=== PATIENT | female | born 1955 ===

== ENCOUNTER 2018-05-12 08:43 | Inpatient (IN) | payer OTHER ==
[~2018-05-12] VITALS: Ht 162.6 cm; Wt 72.3 kg
--- NOTE | 2018-05-12 09:16 | EKG ---
[address] [address] Test Date: 2018-05-12 Test Time: 09:12:29 Pat Name: MARTÍN BECERRA Department: Room: Gender: F [employer]: : 1955 Requested By: MERLY VACA Order Number: [id number] Reading MD: Mario Wei Measurements Intervals [place] Rate: 50 P: 69 NM: 152 QRS: 1 QRSD: 80 T: 49 QT: 424 QTc: 389 Interpretive Statements SINUS RHYTHM INCOMPLETE RIGHT BUNDLE BRANCH BLOCK Electronically Signed On 05-15-2018 10:19:23 CDT by Mario Wei
[2018-05-12 09:29] LABS: BACTERIA,URINE MOD /HPF (0-FEW); BILIRUBIN,URINE NEG (NEG); CLARITY,URINE CLOUDY; COLOR,URINE AMBER; GLUCOSE,URINE NEG (NEG); NITRITE,URINE NEG (NEG); SQUAMOUS EPITHELIAL CELL,UR MANY /LPF; UROBILINOGEN,URINE 0.2 mg/dL (0.2 mg/dL); WBC,URINE >40 /HPF (0-4)
[2018-05-12 09:38] LABS: ALBUMIN 3.9 g/dL (3.4-5.0); CALCIUM 9.5 mg/dL (8.5-10.1); CREATININE 0.7 mg/dL (0.6-1.0); GFR 84.5; MAGNESIUM 1.9 mg/dL (1.8-2.4); POTASSIUM 4.5 mmol/L (3.5-5.1); TOTAL BILIRUBIN 0.3 mg/dL (0.2-1.0); TOTAL PROTEIN 7.8 g/dL (6.4-8.2)
[2018-05-12 09:40] LABS: BASO % 0 % (0-3); EOS # 0.1 x10^3/uL (0.0-0.7); EOS % 1 % (0-3); HEMATOCRIT 39.5 % (36.0-47.0); HEMOGLOBIN 13.6 g/dL (12.0-15.5); LYMPH # 1.2 x10^3/uL (1.0-4.8); LYMPH % 22 % (24-48); MEAN CORPUSCULAR HEMOGLOBIN 30 pg (25-35); MEAN CORPUSCULAR HGB CONC 35 g/dL (31-37); MEAN CORPUSCULAR VOLUME 85 fL (79-100); MONO # 0.4 x10^3/uL (0.0-1.1); MONO % 7 % (0-9); NEUT # 3.6 x10^3uL (1.8-7.7); NEUT % 69 % (31-73); PLATELET COUNT 317 x10^3/uL (140-400); RED BLOOD COUNT 4.63 x10^6/uL (3.50-5.40); RED CELL DISTRIBUTION WIDTH 13.8 % (11.5-14.5); WHITE BLOOD COUNT 5.3 x10^3/uL (4.0-11.0)
--- NOTE | 2018-05-12 09:48 | PHYS DOC ---
Past History Past Medical History: Alcoholism, Arthritis, Diabetes, Hypertension, Other Past Surgical History: Other Alcohol Use: Occasionally Drug Use: None Adult General Chief Complaint Chief Complaint: PSYCH EVALUATION [facility] Patient is a 63 year old female who brought in by senior care staff for medical clearance for psych admission. skilled nursing reported that patient had hallucination and talking to third person and had aggressive behavior. Patient is alert and oriented x3 and denies any problem and states she doesn't know why she is here. Patient denies suicidal and homicidal ideation and hallucination. Review of Systems Review of Systems Constitutional: Denies fever or chills [] Eyes: Denies change in visual acuity, redness, or eye pain [] HENT: Denies nasal congestion or sore throat [] Respiratory: Denies cough or shortness of breath [] Cardiovascular: No additional information not addressed in HPI [] GI: Denies abdominal pain, nausea, vomiting, bloody stools or diarrhea [] : Denies dysuria or hematuria [] Musculoskeletal: Denies back pain or joint pain [] Integument: Denies rash or skin lesions [] Neurologic: Denies headache, focal weakness or sensory changes [] Endocrine: Denies polyuria or polydipsia [] All other systems were reviewed and found to be within normal limits, except as documented in this note. Allergies Allergies Allergies Coded Allergies Type Severity Reaction Last Updated Verified bimatoprost Allergy Intermediate 05/12/18 Yes clotrimazole Allergy Intermediate 05/12/18 Yes pioglitazone Allergy Intermediate 05/12/18 Yes glyburide Adverse Reaction Intermediate 05/12/18 Yes Physical Exam Physical Exam Constitutional: Well developed, well nourished, no acute distress, non-toxic appearance. [] HENT: Normocephalic, atraumatic Eyes: PERRLA, EOMI, conjunctiva normal, no discharge. [] Neck: Normal range of motion, no tenderness, supple, no stridor. [] Cardiovascular:Heart rate regular rhythm, no murmur [] Lungs & Thorax: Bilateral breath sounds clear to auscultation [] Abdomen: Bowel sounds normal, soft, no tenderness, no masses, no pulsatile masses. [] Skin: Warm, dry, no erythema, no rash. [] Back: No tenderness, no CVA tenderness. [] Extremities: No tenderness, no cyanosis, no clubbing, ROM intact, no edema. [] Neurologic: Alert and oriented X 3, normal motor function, normal sensory function, no focal deficits noted. [] Psychologic: Affect normal, judgement normal, mood normal. [] Current Patient Data Vital Signs Vital Signs Date Time Temp Pulse Resp B/P (MAP) Pulse Ox O2 Delivery O2 Flow Rate FiO2 05/12/18 09:11 98.3 59 18 96 Room Air Lab Results Laboratory Tests Test 05/12/18 09:03 05/12/18 09:04 White Blood Count 5.3 x10^3/uL (4.0-11.0) Red Blood Count 4.63 x10^6/uL (3.50-5.40) Hemoglobin 13.6 g/dL (12.0-15.5) Hematocrit 39.5 % (36.0-47.0) Mean Corpuscular Volume 85 fL (79-100) Mean Corpuscular Hemoglobin 30 pg (25-35) Mean Corpuscular Hemoglobin Concent 35 g/dL (31-37) Red Cell Distribution Width 13.8 % (11.5-14.5) Platelet Count 317 x10^3/uL (140-400) Neutrophils (%) (Auto) 69 % (31-73) Lymphocytes (%) (Auto) 22 % (24-48) L Monocytes (%) (Auto) 7 % (0-9) Eosinophils (%) (Auto) 1 % (0-3) Basophils (%) (Auto) 0 % (0-3) Neutrophils # (Auto) 3.6 x10^3uL (1.8-7.7) Lymphocytes # (Auto) 1.2 x10^3/uL (1.0-4.8) Monocytes # (Auto) 0.4 x10^3/uL (0.0-1.1) Eosinophils # (Auto) 0.1 x10^3/uL (0.0-0.7) Basophils # (Auto) 0.0 x10^3/uL (0.0-0.2) Sodium Level 136 mmol/L (136-145) Potassium Level 4.5 mmol/L (3.5-5.1) Chloride Level 99 mmol/L (98-107) Carbon Dioxide Level 29 mmol/L (21-32) Anion Gap 8 (6-14) Blood Urea Nitrogen 11 mg/dL (7-20) Creatinine 0.7 mg/dL (0.6-1.0) Estimated GFR (Cockcroft-Gault) 84.5 BUN/Creatinine Ratio 16 (6-20) Glucose Level 159 mg/dL (70-99) H Calcium Level 9.5 mg/dL (8.5-10.1) Magnesium Level 1.9 mg/dL (1.8-2.4) Total Bilirubin 0.3 mg/dL (0.2-1.0) Aspartate Amino Transferase (AST) 10 U/L (15-37) L Alanine Aminotransferase (ALT) 23 U/L (14-59) Alkaline Phosphatase 66 U/L (46-116) Total Protein 7.8 g/dL (6.4-8.2) Albumin 3.9 g/dL (3.4-5.0) Albumin/Globulin Ratio 1.0 (1.0-1.7) Urine Collection Type Unknown Urine Color Catherine Urine Clarity Cloudy Urine pH 6.5 Urine Specific [place] 1.020 Urine Protein 30 mg/dl (NEG-TRACE) Urine Glucose (UA) Neg mg/dL (NEG) Urine Ketones (Stick) Trace mg/dL (NEG) Urine Blood Trace (NEG) Urine Nitrite Neg (NEG) Urine Bilirubin Neg (NEG) Urine Urobilinogen Dipstick 0.2 mg/dL (0.2 mg/dL) Urine Leukocyte Esterase Mod (NEG) Urine RBC 1-2 /HPF (0-2) Urine WBC >40 /HPF (0-4) Urine Squamous Epithelial Cells Many /LPF Urine Transitional Epithelial Cells Few /LPF Urine Bacteria Mod /HPF (0-FEW) Urine Mucus Marked /LPF EKG EKG EKG interpreted by me. EKG at 0 912 showed sinus bradycardia at rate of 50, incomplete right bundle-branch block, no acute distress and T-wave abnormalities Radiology/Procedures Radiology/Procedures [] Course & Med Decision Making Course & Med Decision Making Pertinent Labs reviewed. (See chart for details) Evaluation of patient in ER showed 63-year-old female patient brought in for medical clearance for psych admission. Patient was alert and oriented and cooperative. Labs showed UTI and patient treated with Bactrim in ER. Patient was medically cleared for psych admission. Dragon Disclaimer Dragon Disclaimer This electronic medical record was generated, in whole or in part, using a voice recognition dictation system. Departure Departure: Impression: Primary Impression: Medical clearance for psychiatric admission Additional Impressions: Urinary tract infection Diabetes mellitus Behavioral problem Disposition: ADMITTED INPATIENT (to senior behavioral unit at 0945) Condition: STABLE Referrals: DEANA BURGOS MD (PCP) Problem Qualifiers MERLY VACA MD May 12, 2018 09:48
[2018-05-12] MEDS ORDERED: SMZ/TMP 800/160MG TABLET. PO ONE (10:10)
[2018-05-12 10:31] VITALS: BP 147/79
[2018-05-12] MEDS ORDERED: MAGNESIUM HYDROXIDE 2,400 MG/30 ML ORAL.SUSP. PO PRN (12:00)
[2018-05-12] MEDS ORDERED: METHYL SALICYLATE/MENTHOL TOPICAL OINTMENT 29GM TUBE. TP PRN (12:00)
[2018-05-12] MEDS ORDERED: MAG HYDROX/AL HYDROX/SIMETH 30 ML ORAL.SUSP PO PRN (12:00)
[2018-05-12] MEDS ORDERED: DICL100G18 TP (12:25)
[2018-05-12] MEDS ORDERED: INSU100V13 SQ (12:25)
[2018-05-12] MEDS ORDERED: ASCO500C9 PO (12:25)
[2018-05-12] MEDS ORDERED: IBUP400T18 PO (12:25)
[2018-05-12] MEDS ORDERED: METF10007 PO (12:25)
[2018-05-12] MEDS ORDERED: ZOLP5TAB PO (12:25)
[2018-05-12] MEDS ORDERED: LURA80TA PO (12:25)
[2018-05-12] MEDS ORDERED: TEMA15CA PO (12:25)
[2018-05-12] MEDS ORDERED: DICLOFENAC SODIUM 1% TOPICAL GEL 100GM TUBE. TP PRN (12:30)
[2018-05-12] MEDS ORDERED: IBUPROFEN 600 MG TABLET. PO PRN (12:45)
[2018-05-12] MEDS ORDERED: LATA2.5D3 EACHEYE (13:22)
[2018-05-12] MEDS ORDERED: DEXT15LI PO (13:36)
[2018-05-12] MEDS ORDERED: BENZ9GEL MM (13:36)
[2018-05-12] MEDS ORDERED: ZOLPIDEM 5 MG TABLET. PO PRN (13:45)
[2018-05-12] MEDS ORDERED: BENZOCAINE 20% ORAL GEL 11.9GM TUBE. TP PRN (13:45)
[2018-05-12] MEDS ORDERED: DEXTROSE ORAL GEL 15 GM TUBE. PO PRN (13:45)
[2018-05-12 16:01] VITALS: BP 125/71
[2018-05-12] MEDS ORDERED: metFORMIN 500 MG TABLET PO SCH (17:00)
[2018-05-12] MEDS: LURASIDONE 40 MG TABLET. PO SCH (17:01)
--- NOTE | 2018-05-12 19:50 | HP ---
ADMIT DATE: 05/12/2018 PSYCHIATRIC ADMISSION HISTORY/EVALUATION This note covers elements not covered in my initial note 05/12/2018. IDENTIFYING DATA: The patient is a 63-year-old female who is referred to us from [facility] in [place], [place] by Dr. Lynn, her primary care physician on account of having auditory and visual hallucinations. Reportedly, she has been aggressive, talks in the third person. She is noncompliant with medications and cares. She has been making catholic statements and grandiose statements that she has been "healed." She has been exit seeking, has failed outpatient psychiatric interventions and inpatient psychiatric hospitalization at [facility] from 05/03/2018 to 05/08/2018. The patient referred for inpatient psychiatric stabilization. CHIEF COMPLAINT: "No. I do not see and hear things. They just say I do. No, I never used to drink." The patient minimizes most of her problems including her past alcohol abuse, but in fact there is documentation about her significant past alcohol abuse. HISTORY OF PRESENT ILLNESS: The patient has a history of mood swings, depression, psychotic symptoms and she minimizes most of this. Cognitively, she has been reasonably intact. She has had some sleep disturbance, marked mood lability, and agitation is noted. No active suicidal or homicidal ideation. PAST PSYCHIATRIC HISTORY: As above. PAST MEDICAL HISTORY: The patient does have a UTI, received a dose of Bactrim in the ED. The patient does have a history of diabetes mellitus, glaucoma, hypertension, polyneuropathy, peripheral vascular disease, osteoarthritis. ACCU-CHEKS: A.c. and at bedtime. DIET: Regular. Takes medications whole. Ambulates with walker. CODE STATUS: FULL CODE. ALLERGIES: GLYBURIDE, ACTOS, LOTRIMIN, LUMIGAN. CURRENT PSYCHOTROPICS: Latuda 80 mg at bedtime, Ambien 5 mg at bedtime. FAMILY HISTORY: Noncontributory. SOCIAL HISTORY: Alcohol abuse history as noted above. No physical, sexual or elder abuse history is noted. She is not known to be a perpetrator. She stays still about age 10. [place]. She states she has 1 son who lives and works in [place], [place]. [place]. MENTAL STATUS EXAM: The patient was seen individually in her room, evening of 05/12/2018. She was aware of the date, but felt it was 05/07/2018. She is aware of who the President was, able to do one step on serial sevens, remembered 2/3 objects at 3 minutes. Speech is coherent, abstraction fair, computation impaired, language function intact. Mood and affect remain somewhat labile. No active suicidal or homicidal ideation. LABORATORY DATA: Reviewed. IMPRESSION: History of major depressive disorder with psychotic features; past history of alcohol abuse or dependence, possible bipolar 1 disorder, mixed with psychotic features; anxiety disorder, unspecified; impulse control disorder, unspecified; urinary tract infection. Rest as above. PLAN: Admit to Geropsychiatry Unit at [facility]. I see the patient daily individually from a psychiatric standpoint, medical followup with Dr. Lynn/Dr. Garnica. Continue the patient on her current psychotropics, observe baseline, then adjust as clinically indicated. Treat the UTI. ESTIMATED LENGTH OF STAY: 7-10 days. DISPOSITION: Plans back to [facility]. MAN Yolette UGARTE MD DR: SB/carmen JOB#: [id number] / [id number]
[2018-05-12] MEDS: ZOLPIDEM 5 MG TABLET. PO SCH (19:58)
[2018-05-12] MEDS: LATANOPROST 0.005% OPHTH SOLUTION 2.5ML BOTTLE. OU SCH (19:58)
[2018-05-12] MEDS ORDERED: INSULIN GLARGINE 300 UNITS/3 ML INSULN.PEN. SQ SCH (21:00)
--- NOTE | 2018-05-12 23:05 | PDOC ---
Exam Note: Alex Note: Please also refer to the separate dictated note~for this date of service dictated separately.~Patient seen individually. Discussed the patient with Nursing staff reviewed the chart.~Reviewed interim history and current functioning. Reviewed vital signs,~Labs/ Radiology~and current medications noted below. Continue current treatment with the changes noted in the dictated addendum note Assessment: Vital Signs: Vital Signs Date Time Temp Pulse Resp B/P (MAP) Pulse Ox O2 Delivery O2 Flow Rate FiO2 05/12/18 16:01 96.9 71 20 125/71 (89) 95 Room Air Labs: Laboratory Tests Test 05/12/18 09:03 05/12/18 09:04 White Blood Count 5.3 x10^3/uL (4.0-11.0) Red Blood Count 4.63 x10^6/uL (3.50-5.40) Hemoglobin 13.6 g/dL (12.0-15.5) Hematocrit 39.5 % (36.0-47.0) Mean Corpuscular Volume 85 fL (79-100) Mean Corpuscular Hemoglobin 30 pg (25-35) Mean Corpuscular Hemoglobin Concent 35 g/dL (31-37) Red Cell Distribution Width 13.8 % (11.5-14.5) Platelet Count 317 x10^3/uL (140-400) Neutrophils (%) (Auto) 69 % (31-73) Lymphocytes (%) (Auto) 22 % (24-48) L Monocytes (%) (Auto) 7 % (0-9) Eosinophils (%) (Auto) 1 % (0-3) Basophils (%) (Auto) 0 % (0-3) Neutrophils # (Auto) 3.6 x10^3uL (1.8-7.7) Lymphocytes # (Auto) 1.2 x10^3/uL (1.0-4.8) Monocytes # (Auto) 0.4 x10^3/uL (0.0-1.1) Eosinophils # (Auto) 0.1 x10^3/uL (0.0-0.7) Basophils # (Auto) 0.0 x10^3/uL (0.0-0.2) Sodium Level 136 mmol/L (136-145) Potassium Level 4.5 mmol/L (3.5-5.1) Chloride Level 99 mmol/L (98-107) Carbon Dioxide Level 29 mmol/L (21-32) Anion Gap 8 (6-14) Blood Urea Nitrogen 11 mg/dL (7-20) Creatinine 0.7 mg/dL (0.6-1.0) Estimated GFR (Cockcroft-Gault) 84.5 BUN/Creatinine Ratio 16 (6-20) Glucose Level 159 mg/dL (70-99) H Calcium Level 9.5 mg/dL (8.5-10.1) Magnesium Level 1.9 mg/dL (1.8-2.4) Total Bilirubin 0.3 mg/dL (0.2-1.0) Aspartate Amino Transferase (AST) 10 U/L (15-37) L Alanine Aminotransferase (ALT) 23 U/L (14-59) Alkaline Phosphatase 66 U/L (46-116) Total Protein 7.8 g/dL (6.4-8.2) Albumin 3.9 g/dL (3.4-5.0) Albumin/Globulin Ratio 1.0 (1.0-1.7) Urine Collection Type Unknown Urine Color Catherine Urine Clarity Cloudy Urine pH 6.5 Urine Specific [place] 1.020 Urine Protein 30 mg/dl (NEG-TRACE) Urine Glucose (UA) Neg mg/dL (NEG) Urine Ketones (Stick) Trace mg/dL (NEG) Urine Blood Trace (NEG) Urine Nitrite Neg (NEG) Urine Bilirubin Neg (NEG) Urine Urobilinogen Dipstick 0.2 mg/dL (0.2 mg/dL) Urine Leukocyte Esterase Mod (NEG) Urine RBC 1-2 /HPF (0-2) Urine WBC >40 /HPF (0-4) Urine Squamous Epithelial Cells Many /LPF Urine Transitional Epithelial Cells Few /LPF Urine Bacteria Mod /HPF (0-FEW) Urine Mucus Marked /LPF Current Medications: Meds: Current Medications Trimethoprim/ Sulfamethoxazole (Bactrim Ds) 1 tab 1X ONCE PO Last administered on 05/12/18at 09:56; Start 05/12/18 at 10:10; Stop 05/12/18 at 10 :11; Status DC Acetaminophen (Tylenol) 650 mg PRN Q6HRS PRN PO PAIN / TEMP; Start 05/12/18 at 12:00 Multi-Ingredient Ointment (Analgesic [place]) 1 mariela PRN QID PRN TP MUSCLE PAIN; Start 05/12/18 at 12:00 Al Hydroxide/Mg Hydroxide (Mylanta Plus Xs) 15 ml PRN AFTMEALHC PRN PO DYSPEPSIA; Start 05/12/18 at 12:00 Magnesium Hydroxide (Milk Of Magnesia) 2,400 mg PRN QHS PRN PO CONSTIPATION; Start 05/12/18 at 12:00 Diclofenac Sodium (Voltaren) 1 mariela PRN QID PRN TP PAIN; Start 05/12/18 at 12: 30; Stop 05/12/18 at 13:22; Status DC Ibuprofen (Motrin) 600 mg PRN Q6HRS PRN PO INFLAMMATION; Start 05/12/18 at 12: 45 Ascorbic Acid (Vitamin C) 500 mg DAILY PO ; Start 05/13/18 at 09:00 Insulin Glargine (Lantus) 20 units QHS SQ ; Start 05/12/18 at 21:00; Stop at 21:00; Status DC Metformin HCl (Glucophage) 1,000 mg BIDWMEALS PO ; Start 05/12/18 at 17:00; Stop 05/12/18 at 17:00; Status DC Metformin HCl (Glucophage) 1,000 mg DAILYWBKFT PO ; Start 05/13/18 at 08:00 Zolpidem Tartrate (Ambien) 5 mg PRN QHS PRN PO INSOMNIA; Start 05/12/18 at 13: 45; Stop 05/12/18 at 13:46; Status DC Benzocaine (Ora-Jel Maximum) 1 mariela PRN Q6HRS PRN TP ORAL PAIN; Start 05/12/18 at 13:45 Glucose (Insta-Glucose) 15 gm PRN Q15MIN PRN PO LOW BLOOD SUGAR; Start at 13:45 Latanoprost (Xalatan) 1 drop QHS OU Last administered on 05/12/18at 19:58; Start 05/12/18 at 21:00 Lurasidone HCl (Latuda) 80 mg DAILYWSUP PO Last administered on 05/12/18at 17: 01; Start 05/12/18 at 17:00 Insulin Glargine (Lantus) 20 units DAILY SQ ; Start 05/13/18 at 09:00 Zolpidem Tartrate (Ambien) 5 mg QHS PO Last administered on 05/12/18at 19:58; Start 05/12/18 at 21:00 Active Scripts Active Reported Glucose (Dextrose) 15 Gm/59 Ml Liquid 15 Gm PO PRN QID Anbesol (Benzocaine) 9 Gm Gel..gram. 9 Gm MM PRN Q6HRS PRN Latanoprost 2.5 Ml Drops 1 Drop EACHEYE QHS Ibuprofen 400 Mg Tablet 600 Mg PO PRN Q6HRS PRN Metformin Hcl 1,000 Mg Tablet 1,000 Mg PO DAILY Vitamin C (Ascorbic Acid) 500 Mg Capsule 500 Mg PO DAILY Levemir (Insulin Detemir) 100 Unit/1 Ml Vial 20 Unit SQ HS Latuda (Lurasidone Hcl) 80 Mg Tablet 80 Mg PO DAILYBFRSUP Ambien (Zolpidem Tartrate) 5 Mg Tablet 5 Mg PO PRN QHS PRN I have reviewed the current psychotropics carefully including drug interactions. Risk benefit ratio favors no change other than as noted in my dictated progress note. Diagnosis: Problems: (1) Urinary tract infection (2) Diabetes mellitus (3) Behavioral problem (4) Medical clearance for psychiatric admission (5) Anxiety disorder (6) Bipolar affective, mixed, sev w/ psych (7) Impulse control disorder AG UGARTE MD May 12, 2018 23:05
[2018-05-13 01:08] LABS: THYROXINE 8.9 ug/dL (4.5-12.0)
[2018-05-13 05:43] VITALS: BP 126/76
[2018-05-13] MEDS: metFORMIN 500 MG TABLET PO SCH (08:55)
[2018-05-13] MEDS: ASCORBIC ACID 500 MG TABLET PO SCH (08:55)
[2018-05-13 14:09] LABS: THYROID STIM HORMONE (TSH) 1.827 uIU/mL (0.358-3.740)
[2018-05-13 16:32] VITALS: BP 136/76
[2018-05-13] MEDS: LURASIDONE 40 MG TABLET. PO SCH (18:05)
[2018-05-13] MEDS: INSULIN GLARGINE 300 UNITS/3 ML INSULN.PEN. SQ SCH (19:04)
[2018-05-13] MEDS: SMZ/TMP 800/160MG TABLET. PO SCH (19:50)
[2018-05-13] MEDS: LACTOBACILLUS RHAMNOSUS GG 1 CAPSULE. PO SCH (19:50)
[2018-05-13] MEDS: LATANOPROST 0.005% OPHTH SOLUTION 2.5ML BOTTLE. OU SCH (19:51)
[2018-05-13] MEDS: ZOLPIDEM 5 MG TABLET. PO SCH (19:51)
--- NOTE | 2018-05-13 23:15 | PDOC ---
Exam Note: Alex Note: Please also refer to the separate dictated note~for this date of service dictated separately.~Patient seen individually. Discussed the patient with Nursing staff reviewed the chart.~Reviewed interim history and current functioning. Reviewed vital signs,~Labs/ Radiology~and current medications noted below. Continue current treatment with the changes noted in the dictated addendum note Assessment: Vital Signs: Vital Signs Date Time Temp Pulse Resp B/P (MAP) Pulse Ox O2 Delivery O2 Flow Rate FiO2 05/13/18 16:32 97.2 68 16 136/76 (96) 97 05/12/18 16:01 Room Air I&O Intake and Output 05/13/18 07:00 Intake Total 580 ml Balance 580 ml Intake Oral 580 ml Labs: Laboratory Tests Test 05/13/18 07:26 Glucose (Fingerstick) 253 mg/dL (70-99) H Current Medications: Meds: Current Medications Trimethoprim/ Sulfamethoxazole (Bactrim Ds) 1 tab 1X ONCE PO Last administered on 05/12/18at 09:56; Start 05/12/18 at 10:10; Stop 05/12/18 at 10 :11; Status DC Acetaminophen (Tylenol) 650 mg PRN Q6HRS PRN PO PAIN / TEMP; Start 05/12/18 at 12:00 Multi-Ingredient Ointment (Analgesic [place]) 1 mariela PRN QID PRN TP MUSCLE PAIN; Start 05/12/18 at 12:00 Al Hydroxide/Mg Hydroxide (Mylanta Plus Xs) 15 ml PRN AFTMEALHC PRN PO DYSPEPSIA; Start 05/12/18 at 12:00 Magnesium Hydroxide (Milk Of Magnesia) 2,400 mg PRN QHS PRN PO CONSTIPATION; Start 05/12/18 at 12:00 Diclofenac Sodium (Voltaren) 1 mariela PRN QID PRN TP PAIN; Start 05/12/18 at 12: 30; Stop 05/12/18 at 13:22; Status DC Ibuprofen (Motrin) 600 mg PRN Q6HRS PRN PO INFLAMMATION; Start 05/12/18 at 12: 45 Ascorbic Acid (Vitamin C) 500 mg DAILY PO Last administered on 05/13/18at 08:55 ; Start 05/13/18 at 09:00 Insulin Glargine (Lantus) 20 units QHS SQ ; Start 05/12/18 at 21:00; Stop at 21:00; Status DC Metformin HCl (Glucophage) 1,000 mg BIDWMEALS PO ; Start 05/12/18 at 17:00; Stop 05/12/18 at 17:00; Status DC Metformin HCl (Glucophage) 1,000 mg DAILYWBKFT PO Last administered on at 08:55; Start 05/13/18 at 08:00 Zolpidem Tartrate (Ambien) 5 mg PRN QHS PRN PO INSOMNIA; Start 05/12/18 at 13: 45; Stop 05/12/18 at 13:46; Status DC Benzocaine (Ora-Jel Maximum) 1 mariela PRN Q6HRS PRN TP ORAL PAIN; Start 05/12/18 at 13:45 Glucose (Insta-Glucose) 15 gm PRN Q15MIN PRN PO LOW BLOOD SUGAR; Start at 13:45 Latanoprost (Xalatan) 1 drop QHS OU Last administered on 05/13/18at 19:51; Start 05/12/18 at 21:00 Lurasidone HCl (Latuda) 80 mg DAILYWSUP PO Last administered on 05/13/18at 18: 05; Start 05/12/18 at 17:00 Insulin Glargine (Lantus) 20 units DAILY SQ Last administered on 05/13/18at 19: 04; Start 05/13/18 at 09:00 Zolpidem Tartrate (Ambien) 5 mg QHS PO Last administered on 05/13/18at 19:51; Start 05/12/18 at 21:00 Trimethoprim/ Sulfamethoxazole (Bactrim Ds) 1 tab BID PO Last administered on 05/13/18at 19:50; Start 05/13/18 at 21:00; Stop 05/20/18 at 20:59 Lactobacillus Rhamnosus (Culturelle) 1 cap BID PO Last administered on at 19:50; Start 05/13/18 at 21:00 Sertraline HCl (Zoloft) 25 mg DAILY PO ; Start 05/14/18 at 09:00 Active Scripts Active Reported Glucose (Dextrose) 15 Gm/59 Ml Liquid 15 Gm PO PRN QID Anbesol (Benzocaine) 9 Gm Gel..gram. 9 Gm MM PRN Q6HRS PRN Latanoprost 2.5 Ml Drops 1 Drop EACHEYE QHS Ibuprofen 400 Mg Tablet 600 Mg PO PRN Q6HRS PRN Metformin Hcl 1,000 Mg Tablet 1,000 Mg PO DAILY Vitamin C (Ascorbic Acid) 500 Mg Capsule 500 Mg PO DAILY Levemir (Insulin Detemir) 100 Unit/1 Ml Vial 20 Unit SQ HS Latuda (Lurasidone Hcl) 80 Mg Tablet 80 Mg PO DAILYBFRSUP Ambien (Zolpidem Tartrate) 5 Mg Tablet 5 Mg PO PRN QHS PRN I have reviewed the current psychotropics carefully including drug interactions. Risk benefit ratio favors no change other than as noted in my dictated progress note. Diagnosis: Problems: (1) Urinary tract infection (2) Diabetes mellitus (3) Behavioral problem (4) Medical clearance for psychiatric admission (5) Anxiety disorder (6) Bipolar affective, mixed, sev w/ psych (7) Impulse control disorder AG UGARTE MD May 13, 2018 23:15
[2018-05-14 05:31] VITALS: BP 133/71
[2018-05-14] MEDS: ACETAMINOPHEN 325 MG TABLET PO PRN ×2 (05:46→18:27)
--- NOTE | 2018-05-14 05:52 | CONS ---
DATE OF CONSULTATION: 05/13/2018 REASON FOR CONSULTATION: Medical management. HISTORY OF PRESENT ILLNESS: The patient is a 63-year-old female patient, resident at [facility] in [place], who was admitted on account of having auditory and visual hallucination. Reportedly, she has been aggressive towards the third person. She is noncompliant with medication and care. She has been making evangelical statement and a grandiose statement stating that she was healed. She has been exit seeking, has failed outpatient psychiatric intervention and inpatient psychiatric hospitalization at [facility] from 05/08/2018-05/13/2018. She was admitted to this unit for inpatient psychiatric stabilization. PAST MEDICAL HISTORY: Significant for type 2 diabetes, glaucoma, hypertension, diabetic polyneuropathy, peripheral vascular disease, generalized osteoarthritis and chronic back pain. She was diagnosed with urinary tract infection and received a dose of Bactrim in the Emergency Department. PAST PSYCHIATRIC HISTORY: Significant for mood swings and depression, psychotic symptoms; however, she cognitively seemed to be reasonably intact with no active suicidal or homicidal ideation. PAST SURGICAL HISTORY: Unremarkable. ALLERGIES: She is allergic to GLYBURIDE, ACTOS, LOTRIMIN AND LUMIGAN. FAMILY HISTORY: Noncontributory. SOCIAL HISTORY: She is currently a resident at [facility] in [place]. She apparently has history of alcohol abuse. She apparently does not smoke or use drugs. [place] in [place]. She has 1 son, who lives and works in [place], [place]. MEDICATIONS: She is currently on the following medications, ibuprofen 600 mg p.o. every 6 hours as needed, lurasidone for Latuda 80 mg daily, Ambien 5 mg at bedtime. She is on benzocaine applied topically every 6 hours, latanoprost 1 drop to both eyes at bedtime, metformin 1000 mg daily. She is on Levemir insulin 20 units at bedtime, ascorbic acid 500 mg once a day. REVIEW OF SYSTEMS: As per history of present illness. PHYSICAL EXAMINATION GENERAL: When I examined her, she was sitting on the edge of the bed comfortably, in no apparent respiratory distress, slightly pale, but no jaundice, cyanosis, or thyromegaly. No jugular venous distension. No lower limb edema. VITAL SIGNS: Her heart rate was 55, blood pressure 126/76, temperature was 97.3, respiratory rate was 18 and oxygen saturation was 95%. HEAD, EYES, EARS, NOSE AND THROAT: Showed normocephalic, atraumatic. NECK: Supple. HEART: Showed normal first and second heart sounds. No gallop, rub or murmur. CHEST: Clear to auscultation. No crepitation or rhonchi. ABDOMEN: Distended, soft, nontender. No guarding or rigidity. No organomegaly. Hernial orifice intact. Bowel sounds normal. NEUROLOGIC: She is awake, alert, responding appropriately. Cranial nerves intact. EXTREMITIES: She moves extremities without difficulty. She ambulates with a walker with minimal assistance. LABORATORY DATA: Showed a serum sodium 136, potassium 4.5, chloride 99, bicarbonate 29, anion gap of 8, BUN 11, creatinine 0.7, estimated GFR was 84 mL per minute. Her glucose was 159, calcium was 9.5, magnesium was 1.9. Total bilirubin, AST, ALT, alkaline phosphatase were normal. White cell count was 5300, hemoglobin 13.6, hematocrit 39.5, MCV 85 and platelet count 317,000. Her urinalysis showed the urine was cloudy with a pH of 6.5, specific gravity of 1.020. There was small amount of protein, negative for glucose, trace of ketones, trace of blood, negative for nitrites and bilirubin. There was moderate amount of leukocyte esterase, 1-2 rbc's, more than 40 wbc's, moderate amount of bacteria. IMPRESSION AND PLAN: In summary, this is a 63-year-old female patient, who was admitted on account of having auditory and visual hallucination, has been aggressive towards the third person. She is noncompliant with medication and care. She has been having grandiose and evangelical statement that has been healed. He has been exit seeking and has failed both inpatient and outpatient psychiatric intervention and she is here for inpatient psychiatric stabilization. Medically, she is known to have type 2 diabetes, glaucoma, hypertension, peripheral vascular disease, generalized osteoarthritis, chronic back pain and polyneuropathy. She did have urinary tract infection, although the urine culture is still pending at the time of this dictation. We will obviously continue with all her current medications. Continue to monitor her blood sugar and adjust her insulin as needed. I will review all her lab work and make any necessary recommendation. Thank you, Dr. Jernigan for allowing me to participate in the care of this patient. DEANA BURGOS MD DR: MISTY/carmen JOB#: [id number] / [id number]
[2018-05-14] MEDS: SMZ/TMP 800/160MG TABLET. PO SCH ×2 (07:34→20:26)
[2018-05-14] MEDS: LACTOBACILLUS RHAMNOSUS GG 1 CAPSULE. PO SCH ×2 (07:34→20:28)
[2018-05-14] MEDS: metFORMIN 500 MG TABLET PO SCH (07:34)
[2018-05-14] MEDS: ASCORBIC ACID 500 MG TABLET PO SCH (07:34)
[2018-05-14] MEDS: SERTRALINE 25 MG TABLET. PO SCH (07:36)
[2018-05-14] MEDS: INSULIN GLARGINE 300 UNITS/3 ML INSULN.PEN. SQ SCH (07:37)
[2018-05-14 16:06] VITALS: BP 112/56
[2018-05-14] MEDS: LURASIDONE 40 MG TABLET. PO SCH (17:17)
--- NOTE | 2018-05-14 20:01 | PN ---
DATE: 05/13/2018 PSYCHIATRIC PROGRESS NOTE This late entry 05/13/2018 covers elements not covered in my initial note. SUBJECTIVE: I met with the patient in the evening. The patient slept 7-1/4 hours previous evening, somewhat withdrawn, anxious. She does have extensive past history of alcohol abuse, but none recently. No clear hallucinations noted as I addressed with her individually. She ambulates with a walker. No CV, , pulmonary, eye system symptoms on review. MENTAL STATUS EXAM: Reasonably oriented. Speech is coherent, abstraction fair, computation impaired, language function intact, attention span short. Mood and affect somewhat withdrawn at times. LABORATORY DATA: Reviewed. IMPRESSION: Bipolar 1 disorder, mixed with psychotic features; history of major depressive disorder. Past history of alcohol abuse. PLAN: From a psychiatric standpoint, she does have a UTI, which could have contributed to her admission psychiatric symptoms. We will maintain Latuda 80 mg at bedtime, Ambien 5 mg at bedtime, start Zoloft 25 mg a day for mood, anxiety symptoms. Adjust as clinically indicated. MAN Yolette UGARTE MD DR: SB/carmen JOB#: [id number] / [id number]
[2018-05-14] MEDS: ZOLPIDEM 5 MG TABLET. PO SCH (20:26)
[2018-05-14] MEDS: LATANOPROST 0.005% OPHTH SOLUTION 2.5ML BOTTLE. OU SCH (20:28)
--- NOTE | 2018-05-14 23:06 | PDOC ---
Exam Note: Alex Note: Please also refer to the separate dictated note~for this date of service dictated separately.~Patient seen individually. Discussed the patient with Nursing staff reviewed the chart.~Reviewed interim history and current functioning. Reviewed vital signs,~Labs/ Radiology~and current medications noted below. Continue current treatment with the changes noted in the dictated addendum note Assessment: Vital Signs: Vital Signs Date Time Temp Pulse Resp B/P (MAP) Pulse Ox O2 Delivery O2 Flow Rate FiO2 05/14/18 16:06 97.1 62 16 112/56 (74) 97 Room Air I&O Intake and Output 05/14/18 07:00 Intake Total 1080 ml Balance 1080 ml Intake Oral 1080 ml Labs: Laboratory Tests Test 05/14/18 07:45 Glucose (Fingerstick) 133 mg/dL (70-99) H Current Medications: Meds: Current Medications Trimethoprim/ Sulfamethoxazole (Bactrim Ds) 1 tab 1X ONCE PO Last administered on 05/12/18at 09:56; Start 05/12/18 at 10:10; Stop 05/12/18 at 10 :11; Status DC Acetaminophen (Tylenol) 650 mg PRN Q6HRS PRN PO PAIN / TEMP Last administered on 05/14/18at 18:27; Start 05/12/18 at 12:00 Multi-Ingredient Ointment (Analgesic [place]) 1 mariela PRN QID PRN TP MUSCLE PAIN; Start 05/12/18 at 12:00 Al Hydroxide/Mg Hydroxide (Mylanta Plus Xs) 15 ml PRN AFTMEALHC PRN PO DYSPEPSIA; Start 05/12/18 at 12:00 Magnesium Hydroxide (Milk Of Magnesia) 2,400 mg PRN QHS PRN PO CONSTIPATION; Start 05/12/18 at 12:00 Diclofenac Sodium (Voltaren) 1 mariela PRN QID PRN TP PAIN; Start 05/12/18 at 12: 30; Stop 05/12/18 at 13:22; Status DC Ibuprofen (Motrin) 600 mg PRN Q6HRS PRN PO INFLAMMATION; Start 05/12/18 at 12: 45 Ascorbic Acid (Vitamin C) 500 mg DAILY PO Last administered on 05/14/18at 07:34 ; Start 05/13/18 at 09:00 Insulin Glargine (Lantus) 20 units QHS SQ ; Start 05/12/18 at 21:00; Stop at 21:00; Status DC Metformin HCl (Glucophage) 1,000 mg BIDWMEALS PO ; Start 05/12/18 at 17:00; Stop 05/12/18 at 17:00; Status DC Metformin HCl (Glucophage) 1,000 mg DAILYWBKFT PO Last administered on at 07:34; Start 05/13/18 at 08:00 Zolpidem Tartrate (Ambien) 5 mg PRN QHS PRN PO INSOMNIA; Start 05/12/18 at 13: 45; Stop 05/12/18 at 13:46; Status DC Benzocaine (Ora-Jel Maximum) 1 mariela PRN Q6HRS PRN TP ORAL PAIN; Start 05/12/18 at 13:45 Glucose (Insta-Glucose) 15 gm PRN Q15MIN PRN PO LOW BLOOD SUGAR; Start at 13:45 Latanoprost (Xalatan) 1 drop QHS OU Last administered on 05/14/18at 20:28; Start 05/12/18 at 21:00 Lurasidone HCl (Latuda) 80 mg DAILYWSUP PO Last administered on 05/14/18at 17:17 ; Start 05/12/18 at 17:00 Insulin Glargine (Lantus) 20 units DAILY SQ Last administered on 05/14/18at 07: 37; Start 05/13/18 at 09:00 Zolpidem Tartrate (Ambien) 5 mg QHS PO Last administered on 05/14/18at 20:26; Start 05/12/18 at 21:00 Trimethoprim/ Sulfamethoxazole (Bactrim Ds) 1 tab BID PO Last administered on 05/14/18at 20:26; Start 05/13/18 at 21:00; Stop 05/20/18 at 20:59 Lactobacillus Rhamnosus (Culturelle) 1 cap BID PO Last administered on at 20:28; Start 05/13/18 at 21:00 Sertraline HCl (Zoloft) 25 mg DAILY PO Last administered on 05/14/18at 07:36; Start 05/14/18 at 09:00 Active Scripts Active Reported Glucose (Dextrose) 15 Gm/59 Ml Liquid 15 Gm PO PRN QID Anbesol (Benzocaine) 9 Gm Gel..gram. 9 Gm MM PRN Q6HRS PRN Latanoprost 2.5 Ml Drops 1 Drop EACHEYE QHS Ibuprofen 400 Mg Tablet 600 Mg PO PRN Q6HRS PRN Metformin Hcl 1,000 Mg Tablet 1,000 Mg PO DAILY Vitamin C (Ascorbic Acid) 500 Mg Capsule 500 Mg PO DAILY Levemir (Insulin Detemir) 100 Unit/1 Ml Vial 20 Unit SQ HS Latuda (Lurasidone Hcl) 80 Mg Tablet 80 Mg PO DAILYBFRSUP Ambien (Zolpidem Tartrate) 5 Mg Tablet 5 Mg PO PRN QHS PRN I have reviewed the current psychotropics carefully including drug interactions. Risk benefit ratio favors no change other than as noted in my dictated progress note. Diagnosis: Problems: (1) Urinary tract infection (2) Diabetes mellitus (3) Behavioral problem (4) Medical clearance for psychiatric admission (5) Anxiety disorder (6) Bipolar affective, mixed, sev w/ psych (7) Impulse control disorder AG UGARTE MD May 14, 2018 23:06
[2018-05-15 06:14] VITALS: BP 124/71
[2018-05-15] MEDS: metFORMIN 500 MG TABLET PO SCH (07:53)
[2018-05-15] MEDS: LACTOBACILLUS RHAMNOSUS GG 1 CAPSULE. PO SCH ×2 (07:53→19:36)
[2018-05-15] MEDS: ASCORBIC ACID 500 MG TABLET PO SCH (07:53)
[2018-05-15] MEDS: SERTRALINE 25 MG TABLET. PO SCH (07:54)
[2018-05-15] MEDS: SMZ/TMP 800/160MG TABLET. PO SCH ×2 (07:54→19:36)
[2018-05-15] MEDS: INSULIN GLARGINE 300 UNITS/3 ML INSULN.PEN. SQ SCH (07:56)
[2018-05-15] MEDS: ACETAMINOPHEN 325 MG TABLET PO PRN (08:40)
[2018-05-15 15:46] VITALS: BP 105/65
[2018-05-15] MEDS: LURASIDONE 40 MG TABLET. PO SCH (16:50)
[2018-05-15] MEDS: ZOLPIDEM 5 MG TABLET. PO SCH (19:36)
[2018-05-15] MEDS: LATANOPROST 0.005% OPHTH SOLUTION 2.5ML BOTTLE. OU SCH (19:56)
--- NOTE | 2018-05-15 20:54 | PN ---
DATE: 05/14/2018 PSYCHIATRIC PROGRESS NOTE This late entry 05/14/2018 covers elements not covered in my initial note. SUBJECTIVE: I met with the patient in the evening, staffed at a treatment team meeting with the entire team in the morning. Reviewed the patient's history, diagnosis at length. Her prior treatment at the inpatient psychiatric Facility in [place] was reviewed. The patient slept 6-1/2 hours previous night. She has been fairly calm. Denies any active hallucinations. No CV, , pulmonary, eye system symptoms on review. Ambulation impaired with walker. MENTAL STATUS EXAM: Reasonably oriented. Speech is coherent, has some latency. Abstraction fair, computation impaired, language function intact, attention span short. Mood and affect showing improvement. LABORATORY DATA: Reviewed. IMPRESSION: Probable bipolar 1 disorder, mixed history of major depressive disorder; anxiety disorder, unspecified. PLAN: Continue Latuda 80 mg at bedtime; Ambien 5 mg at bedtime; Zoloft 25 mg a day, may need to increase gradually. MAN Yolette UGARTE MD DR: SB/carmen JOB#: [id number] / [id number]
--- NOTE | 2018-05-15 23:01 | PDOC ---
Exam Note: Alex Note: Please also refer to the separate dictated note~for this date of service dictated separately.~Patient seen individually. Discussed the patient with Nursing staff reviewed the chart.~Reviewed interim history and current functioning. Reviewed vital signs,~Labs/ Radiology~and current medications noted below. Continue current treatment with the changes noted in the dictated addendum note Assessment: Vital Signs: Vital Signs Date Time Temp Pulse Resp B/P (MAP) Pulse Ox O2 Delivery O2 Flow Rate FiO2 05/15/18 15:46 98.6 61 18 105/65 (78) 97 Room Air I&O Intake and Output 05/15/18 07:00 Intake Total 840 ml Balance 840 ml Intake Oral 840 ml # Voids 1 Labs: Laboratory Tests Test 05/15/18 07:26 Glucose (Fingerstick) 123 mg/dL (70-99) H Current Medications: Meds: Current Medications Trimethoprim/ Sulfamethoxazole (Bactrim Ds) 1 tab 1X ONCE PO Last administered on 05/12/18at 09:56; Start 05/12/18 at 10:10; Stop 05/12/18 at 10 :11; Status DC Acetaminophen (Tylenol) 650 mg PRN Q6HRS PRN PO PAIN / TEMP Last administered on 05/15/18at 08:40; Start 05/12/18 at 12:00 Multi-Ingredient Ointment (Analgesic [place]) 1 mariela PRN QID PRN TP MUSCLE PAIN; Start 05/12/18 at 12:00 Al Hydroxide/Mg Hydroxide (Mylanta Plus Xs) 15 ml PRN AFTMEALHC PRN PO DYSPEPSIA; Start 05/12/18 at 12:00 Magnesium Hydroxide (Milk Of Magnesia) 2,400 mg PRN QHS PRN PO CONSTIPATION; Start 05/12/18 at 12:00 Diclofenac Sodium (Voltaren) 1 mariela PRN QID PRN TP PAIN; Start 05/12/18 at 12: 30; Stop 05/12/18 at 13:22; Status DC Ibuprofen (Motrin) 600 mg PRN Q6HRS PRN PO INFLAMMATION; Start 05/12/18 at 12: 45 Ascorbic Acid (Vitamin C) 500 mg DAILY PO Last administered on 05/15/18at 07:53 ; Start 05/13/18 at 09:00 Insulin Glargine (Lantus) 20 units QHS SQ ; Start 05/12/18 at 21:00; Stop at 21:00; Status DC Metformin HCl (Glucophage) 1,000 mg BIDWMEALS PO ; Start 05/12/18 at 17:00; Stop 05/12/18 at 17:00; Status DC Metformin HCl (Glucophage) 1,000 mg DAILYWBKFT PO Last administered on at 07:53; Start 05/13/18 at 08:00 Zolpidem Tartrate (Ambien) 5 mg PRN QHS PRN PO INSOMNIA; Start 05/12/18 at 13: 45; Stop 05/12/18 at 13:46; Status DC Benzocaine (Ora-Jel Maximum) 1 mariela PRN Q6HRS PRN TP ORAL PAIN; Start 05/12/18 at 13:45 Glucose (Insta-Glucose) 15 gm PRN Q15MIN PRN PO LOW BLOOD SUGAR; Start at 13:45 Latanoprost (Xalatan) 1 drop QHS OU Last administered on 05/14/18at 20:28; Start 05/12/18 at 21:00; Stop 05/15/18 at 19:39; Status DC Lurasidone HCl (Latuda) 80 mg DAILYWSUP PO Last administered on 05/15/18at 16:50 ; Start 05/12/18 at 17:00 Insulin Glargine (Lantus) 20 units DAILY SQ Last administered on 05/15/18at 07: 56; Start 05/13/18 at 09:00 Zolpidem Tartrate (Ambien) 5 mg QHS PO Last administered on 05/15/18at 19:36; Start 05/12/18 at 21:00 Trimethoprim/ Sulfamethoxazole (Bactrim Ds) 1 tab BID PO Last administered on 05/15/18 19:36; Start 05/13/18 at 21:00; Stop 05/20/18 at 20:59 Lactobacillus Rhamnosus (Culturelle) 1 cap BID PO Last administered on at 19:36; Start 05/13/18 at 21:00 Sertraline HCl (Zoloft) 25 mg DAILY PO Last administered on 05/15/18at 07:54; Start 05/14/18 at 09:00 Latanoprost (Xalatan) 1 drop QHS OU Last administered on 05/15/18at 19:56; Start 05/15/18 at 19:39 Active Scripts Active Reported Glucose (Dextrose) 15 Gm/59 Ml Liquid 15 Gm PO PRN QID Anbesol (Benzocaine) 9 Gm Gel..gram. 9 Gm MM PRN Q6HRS PRN Latanoprost 2.5 Ml Drops 1 Drop EACHEYE QHS Ibuprofen 400 Mg Tablet 600 Mg PO PRN Q6HRS PRN Metformin Hcl 1,000 Mg Tablet 1,000 Mg PO DAILY Vitamin C (Ascorbic Acid) 500 Mg Capsule 500 Mg PO DAILY Levemir (Insulin Detemir) 100 Unit/1 Ml Vial 20 Unit SQ HS Latuda (Lurasidone Hcl) 80 Mg Tablet 80 Mg PO DAILYBFRSUP Ambien (Zolpidem Tartrate) 5 Mg Tablet 5 Mg PO PRN QHS PRN I have reviewed the current psychotropics carefully including drug interactions. Risk benefit ratio favors no change other than as noted in my dictated progress note. Diagnosis: Problems: (1) Urinary tract infection (2) Diabetes mellitus (3) Behavioral problem (4) Medical clearance for psychiatric admission (5) Anxiety disorder (6) Bipolar affective, mixed, sev w/ psych (7) Impulse control disorder AG UGARTE MD May 15, 2018 23:01
[2018-05-16 06:00] VITALS: BP 119/67
[2018-05-16] MEDS: INSULIN GLARGINE 300 UNITS/3 ML INSULN.PEN. SQ SCH (07:52)
[2018-05-16] MEDS: SERTRALINE 25 MG TABLET. PO SCH (08:16)
[2018-05-16] MEDS: LACTOBACILLUS RHAMNOSUS GG 1 CAPSULE. PO SCH ×2 (08:16→20:27)
[2018-05-16] MEDS: metFORMIN 500 MG TABLET PO SCH (08:16)
[2018-05-16] MEDS: SMZ/TMP 800/160MG TABLET. PO SCH (08:16)
[2018-05-16] MEDS: ASCORBIC ACID 500 MG TABLET PO SCH (08:16)
[2018-05-16 15:48] VITALS: BP 106/63
[2018-05-16] MEDS: LURASIDONE 40 MG TABLET. PO SCH (16:15)
[2018-05-16] MEDS: ZOLPIDEM 5 MG TABLET. PO SCH (20:28)
[2018-05-16] MEDS: LATANOPROST 0.005% OPHTH SOLUTION 2.5ML BOTTLE. OU SCH (20:28)
--- NOTE | 2018-05-16 23:06 | PDOC ---
Exam Note: Alex Note: Please also refer to the separate dictated note~for this date of service dictated separately.~Patient seen individually. Discussed the patient with Nursing staff reviewed the chart.~Reviewed interim history and current functioning. Reviewed vital signs,~Labs/ Radiology~and current medications noted below. Continue current treatment with the changes noted in the dictated addendum note Assessment: Vital Signs: Vital Signs Date Time Temp Pulse Resp B/P (MAP) Pulse Ox O2 Delivery O2 Flow Rate FiO2 05/16/18 15:48 98.6 62 20 106/63 (77) 97 Room Air I&O Intake and Output 05/16/18 07:00 Intake Total 960 ml Balance 960 ml Intake Oral 960 ml # Voids 3 Labs: Laboratory Tests Test 05/16/18 07:24 Glucose (Fingerstick) 125 mg/dL (70-99) H Current Medications: Meds: Current Medications Trimethoprim/ Sulfamethoxazole (Bactrim Ds) 1 tab 1X ONCE PO Last administered on 05/12/18at 09:56; Start 05/12/18 at 10:10; Stop 05/12/18 at 10 :11; Status DC Acetaminophen (Tylenol) 650 mg PRN Q6HRS PRN PO PAIN / TEMP Last administered on 05/15/18at 08:40; Start 05/12/18 at 12:00 Multi-Ingredient Ointment (Analgesic [place]) 1 mariela PRN QID PRN TP MUSCLE PAIN; Start 05/12/18 at 12:00 Al Hydroxide/Mg Hydroxide (Mylanta Plus Xs) 15 ml PRN AFTMEALHC PRN PO DYSPEPSIA; Start 05/12/18 at 12:00 Magnesium Hydroxide (Milk Of Magnesia) 2,400 mg PRN QHS PRN PO CONSTIPATION; Start 05/12/18 at 12:00 Diclofenac Sodium (Voltaren) 1 mariela PRN QID PRN TP PAIN; Start 05/12/18 at 12: 30; Stop 05/12/18 at 13:22; Status DC Ibuprofen (Motrin) 600 mg PRN Q6HRS PRN PO INFLAMMATION; Start 05/12/18 at 12: 45 Ascorbic Acid (Vitamin C) 500 mg DAILY PO Last administered on 05/16/18at 08:16 ; Start 05/13/18 at 09:00 Insulin Glargine (Lantus) 20 units QHS SQ ; Start 05/12/18 at 21:00; Stop at 21:00; Status DC Metformin HCl (Glucophage) 1,000 mg BIDWMEALS PO ; Start 05/12/18 at 17:00; Stop 05/12/18 at 17:00; Status DC Metformin HCl (Glucophage) 1,000 mg DAILYWBKFT PO Last administered on at 08:16; Start 05/13/18 at 08:00 Zolpidem Tartrate (Ambien) 5 mg PRN QHS PRN PO INSOMNIA; Start 05/12/18 at 13: 45; Stop 05/12/18 at 13:46; Status DC Benzocaine (Ora-Jel Maximum) 1 mariela PRN Q6HRS PRN TP ORAL PAIN; Start 05/12/18 at 13:45 Glucose (Insta-Glucose) 15 gm PRN Q15MIN PRN PO LOW BLOOD SUGAR; Start at 13:45 Latanoprost (Xalatan) 1 drop QHS OU Last administered on 05/14/18at 20:28; Start 05/12/18 at 21:00; Stop 05/15/18 at 19:39; Status DC Lurasidone HCl (Latuda) 80 mg DAILYWSUP PO Last administered on 05/16/18at 16:15 ; Start 05/12/18 at 17:00 Insulin Glargine (Lantus) 20 units DAILY SQ Last administered on 05/16/18at 07: 52; Start 05/13/18 at 09:00 Zolpidem Tartrate (Ambien) 5 mg QHS PO Last administered on 05/16/18at 20:28; Start 05/12/18 at 21:00 Trimethoprim/ Sulfamethoxazole (Bactrim Ds) 1 tab BID PO Last administered on 05/16/18at 08:16; Start 05/13/18 at 21:00; Stop 05/16/18 at 13:30; Status DC Lactobacillus Rhamnosus (Culturelle) 1 cap BID PO Last administered on at 20:27; Start 05/13/18 at 21:00 Sertraline HCl (Zoloft) 25 mg DAILY PO Last administered on 05/16/18at 08:16; Start 05/14/18 at 09:00 Latanoprost (Xalatan) 1 drop QHS OU Last administered on 05/16/18at 20:28; Start 05/15/18 at 19:39 Active Scripts Active Reported Glucose (Dextrose) 15 Gm/59 Ml Liquid 15 Gm PO PRN QID Anbesol (Benzocaine) 9 Gm Gel..gram. 9 Gm MM PRN Q6HRS PRN Latanoprost 2.5 Ml Drops 1 Drop EACHEYE QHS Ibuprofen 400 Mg Tablet 600 Mg PO PRN Q6HRS PRN Metformin Hcl 1,000 Mg Tablet 1,000 Mg PO DAILY Vitamin C (Ascorbic Acid) 500 Mg Capsule 500 Mg PO DAILY Levemir (Insulin Detemir) 100 Unit/1 Ml Vial 20 Unit SQ HS Latuda (Lurasidone Hcl) 80 Mg Tablet 80 Mg PO DAILYBFRSUP Ambien (Zolpidem Tartrate) 5 Mg Tablet 5 Mg PO PRN QHS PRN I have reviewed the current psychotropics carefully including drug interactions. Risk benefit ratio favors no change other than as noted in my dictated progress note. Diagnosis: Problems: (1) Urinary tract infection (2) Diabetes mellitus (3) Behavioral problem (4) Medical clearance for psychiatric admission (5) Anxiety disorder (6) Bipolar affective, mixed, sev w/ psych (7) Impulse control disorder AG UGARTE MD May 16, 2018 23:06
[2018-05-17 06:03] VITALS: BP 118/62
[2018-05-17] MEDS: LACTOBACILLUS RHAMNOSUS GG 1 CAPSULE. PO SCH ×2 (08:19→19:29)
[2018-05-17] MEDS: ASCORBIC ACID 500 MG TABLET PO SCH (08:19)
[2018-05-17] MEDS: INSULIN GLARGINE 300 UNITS/3 ML INSULN.PEN. SQ SCH (08:19)
[2018-05-17] MEDS: metFORMIN 500 MG TABLET PO SCH (08:19)
[2018-05-17] MEDS: SERTRALINE 25 MG TABLET. PO SCH (08:20)
[2018-05-17 15:42] VITALS: BP 110/66
--- NOTE | 2018-05-17 16:06 | PN ---
DATE: 05/15/2018 This late entry 05/15/2018 covers elements not covered in my initial note. SUBJECTIVE: I met with the patient in the evening. The patient slept 6-1/4 hours previous night. She spends much time in her room, isolates, talks to herself, but on close and thorough questioning stated these were not hallucinations, withdraw the conversation she has to help her own decision making process. Slept 6-1/4 hours. REVIEW OF SYSTEMS: No CV, , pulmonary, eye, ENT system symptoms on review. Reliability fair. MENTAL STATUS EXAM: Reasonably oriented. Speech is coherent, abstraction fair, computation somewhat impaired, language function intact, attention span short. Mood and affect fairly appropriate. No suicidal or homicidal ideation. LABORATORY DATA: Reviewed. IMPRESSION: Probable bipolar 1 disorder, mixed; anxiety disorder, unspecified. Rest unchanged. PLAN: No change from initial note. Maintain Latuda, Ambien and Zoloft at current dosage. May need to increase Zoloft gradually. AG UGARTE MD DR: SB/carmen JOB#: [id number] / [id number]
[2018-05-17] MEDS: LURASIDONE 40 MG TABLET. PO SCH (16:59)
[2018-05-17] MEDS: ZOLPIDEM 5 MG TABLET. PO SCH (19:29)
[2018-05-17] MEDS: LATANOPROST 0.005% OPHTH SOLUTION 2.5ML BOTTLE. OU SCH (19:30)
[2018-05-17] MEDS ORDERED: MELATONIN 3 MG TABLET PO SCH (21:00)
--- NOTE | 2018-05-17 22:57 | PDOC ---
Exam Note: Alex Note: Please also refer to the separate dictated note~for this date of service dictated separately.~Patient seen individually. Discussed the patient with Nursing staff reviewed the chart.~Reviewed interim history and current functioning. Reviewed vital signs,~Labs/ Radiology~and current medications noted below. Continue current treatment with the changes noted in the dictated addendum note Assessment: Vital Signs: Vital Signs Date Time Temp Pulse Resp B/P (MAP) Pulse Ox O2 Delivery O2 Flow Rate FiO2 05/17/18 15:42 97.8 68 18 110/66 (81) 96 Room Air I&O Intake and Output 05/17/18 07:00 Intake Total 1200 ml Balance 1200 ml Intake Oral 1200 ml Labs: Laboratory Tests Test 05/17/18 07:38 Glucose (Fingerstick) 149 mg/dL (70-99) H Current Medications: Meds: Current Medications Trimethoprim/ Sulfamethoxazole (Bactrim Ds) 1 tab 1X ONCE PO Last administered on 05/12/18at 09:56; Start 05/12/18 at 10:10; Stop 05/12/18 at 10 :11; Status DC Acetaminophen (Tylenol) 650 mg PRN Q6HRS PRN PO PAIN / TEMP Last administered on 05/15/18at 08:40; Start 05/12/18 at 12:00 Multi-Ingredient Ointment (Analgesic Ravia) 1 mariela PRN QID PRN TP MUSCLE PAIN; Start 05/12/18 at 12:00 Al Hydroxide/Mg Hydroxide (Mylanta Plus Xs) 15 ml PRN AFTMEALHC PRN PO DYSPEPSIA; Start 05/12/18 at 12:00 Magnesium Hydroxide (Milk Of Magnesia) 2,400 mg PRN QHS PRN PO CONSTIPATION; Start 05/12/18 at 12:00 Diclofenac Sodium (Voltaren) 1 mariela PRN QID PRN TP PAIN; Start 05/12/18 at 12: 30; Stop 05/12/18 at 13:22; Status DC Ibuprofen (Motrin) 600 mg PRN Q6HRS PRN PO INFLAMMATION; Start 05/12/18 at 12: 45 Ascorbic Acid (Vitamin C) 500 mg DAILY PO Last administered on 05/17/18at 08:19 ; Start 05/13/18 at 09:00 Insulin Glargine (Lantus) 20 units QHS SQ ; Start 05/12/18 at 21:00; Stop at 21:00; Status DC Metformin HCl (Glucophage) 1,000 mg BIDWMEALS PO ; Start 05/12/18 at 17:00; Stop 05/12/18 at 17:00; Status DC Metformin HCl (Glucophage) 1,000 mg DAILYWBKFT PO Last administered on at 08:19; Start 05/13/18 at 08:00 Zolpidem Tartrate (Ambien) 5 mg PRN QHS PRN PO INSOMNIA; Start 05/12/18 at 13: 45; Stop 05/12/18 at 13:46; Status DC Benzocaine (Ora-Jel Maximum) 1 mariela PRN Q6HRS PRN TP ORAL PAIN; Start 05/12/18 at 13:45 Glucose (Insta-Glucose) 15 gm PRN Q15MIN PRN PO LOW BLOOD SUGAR; Start at 13:45 Latanoprost (Xalatan) 1 drop QHS OU Last administered on 05/14/18at 20:28; Start 05/12/18 at 21:00; Stop 05/15/18 at 19:39; Status DC Lurasidone HCl (Latuda) 80 mg DAILYWSUP PO Last administered on 05/17/18at 16:59 ; Start 05/12/18 at 17:00 Insulin Glargine (Lantus) 20 units DAILY SQ Last administered on 05/17/18at 08: 19; Start 05/13/18 at 09:00 Zolpidem Tartrate (Ambien) 5 mg QHS PO Last administered on 05/17/18at 19:29; Start 05/12/18 at 21:00 Trimethoprim/ Sulfamethoxazole (Bactrim Ds) 1 tab BID PO Last administered on 05/16/18at 08:16; Start 05/13/18 at 21:00; Stop 05/16/18 at 13:30; Status DC Lactobacillus Rhamnosus (Culturelle) 1 cap BID PO Last administered on at 19:29; Start 05/13/18 at 21:00 Sertraline HCl (Zoloft) 25 mg DAILY PO Last administered on 05/17/18at 08:20; Start 05/14/18 at 09:00 Latanoprost (Xalatan) 1 drop QHS OU Last administered on 05/17/18at 19:30; Start 05/15/18 at 19:39 Melatonin 3 mg HS PO Last administered on 05/17/18at 21:28; Start 05/17/18 at 21 :00 Active Scripts Active Reported Glucose (Dextrose) 15 Gm/59 Ml Liquid 15 Gm PO PRN QID Anbesol (Benzocaine) 9 Gm Gel..gram. 9 Gm MM PRN Q6HRS PRN Latanoprost 2.5 Ml Drops 1 Drop EACHEYE QHS Ibuprofen 400 Mg Tablet 600 Mg PO PRN Q6HRS PRN Metformin Hcl 1,000 Mg Tablet 1,000 Mg PO DAILY Vitamin C (Ascorbic Acid) 500 Mg Capsule 500 Mg PO DAILY Levemir (Insulin Detemir) 100 Unit/1 Ml Vial 20 Unit SQ HS Latuda (Lurasidone Hcl) 80 Mg Tablet 80 Mg PO DAILYBFRSUP Ambien (Zolpidem Tartrate) 5 Mg Tablet 5 Mg PO PRN QHS PRN I have reviewed the current psychotropics carefully including drug interactions. Risk benefit ratio favors no change other than as noted in my dictated progress note. Diagnosis: Problems: (1) Urinary tract infection (2) Diabetes mellitus (3) Behavioral problem (4) Medical clearance for psychiatric admission (5) Anxiety disorder (6) Bipolar affective, mixed, sev w/ psych (7) Impulse control disorder AG UGARTE MD May 17, 2018 22:57
[2018-05-18] MEDS ORDERED: SERT25TA PO (00:59)
[2018-05-18] MEDS ORDERED: MELA3TAB2 PO (01:15)
[2018-05-18] MEDS ORDERED: LACT1CAP21 PO (01:15)
[2018-05-18 06:03] VITALS: BP 118/68
[2018-05-18] MEDS: LACTOBACILLUS RHAMNOSUS GG 1 CAPSULE. PO SCH (08:17)
[2018-05-18] MEDS: ASCORBIC ACID 500 MG TABLET PO SCH (08:17)
[2018-05-18] MEDS: metFORMIN 500 MG TABLET PO SCH (08:17)
[2018-05-18] MEDS: SERTRALINE 25 MG TABLET. PO SCH (08:17)
[2018-05-18] MEDS: INSULIN GLARGINE 300 UNITS/3 ML INSULN.PEN. SQ SCH (08:18)
--- NOTE | 2018-05-18 09:36 | PN ---
DATE: 05/16/2018 PSYCHIATRIC PROGRESS NOTE This is a late entry of 05/16/2018 covers elements not covered in my initial note. SUBJECTIVE: I met with the patient in the evening. Overall, the patient remains withdrawn, spends much time in her room, but denies hallucinating. She is noted to be talking to herself at times. She slept 6-1/4 hours previous evening. REVIEW OF SYSTEMS: No CV, , pulmonary, eye system symptoms on review. MENTAL STATUS EXAM: Reasonably oriented. Speech has some latency, coherent. Abstraction fair, computation impaired, language function intact, attention span short. Mood and affect somewhat withdrawn. LABORATORY DATA: Reviewed. IMPRESSION: Bipolar 1 disorder versus bipolar 2 disorder, depressed with psychotic features; anxiety disorder, unspecified. Rest unchanged. PLAN: No change from initial notes. Maintain Latuda, Zoloft and Ambien. MAN Yolette UGARTE MD DR: SB/carmen JOB#: [id number] / [id number]
--- NOTE | 2018-05-18 17:25 | DS ---
DATE OF DISCHARGE: 05/18/2018 This note covers the elements not covered in my initial note of 05/18/2018. REASON FOR ADMISSION: Please refer to the admission history for details. Briefly, the patient is a 63-year-old [place]- female referred from [facility] by her primary care physician on account of auditory and visual hallucinations, being aggressive with staff members. Patient is reportedly talking in third person, noncompliant with medications and cares. She had failed outpatient psychiatric interventions for her bipolar disorder. More depressed, was referred for inpatient psychiatric stabilization. SIGNIFICANT FINDINGS AND CLINICAL COURSE: Following admission, the patient was seen daily individually by myself, followed medically per Dr. Lynn/Dr. Garnica. Patient is somewhat withdrawn, seems to talk to herself, but denied these were hallucinations, but rather her attempt to clarify her thinking, but talking aloud. Adjustments were made in her psychotropics. Zoloft was added 25 mg a day. She seemed to respond to this and a combination of Latuda 80 mg at bedtime, Ambien 5 mg at bedtime. Prior to discharge, on 05/18/2018, no CV, , pulmonary, eye, ENT system symptoms on review. Ambulation impaired with walker. MENTAL STATUS EXAM: Oriented, reasonably. Speech, has some latency, coherent. Abstraction fair, computation impaired, language function intact, attention span short. Mood and affect is improved. FINAL DIAGNOSES: Bipolar 1 disorder, mixed with psychotic features, in partial remission; anxiety disorder, unspecified. Rest unchanged from admission. DISCHARGE MEDICATIONS: Please refer to the MRAD. DISCHARGE INSTRUCTIONS: Outpatient psychiatric medical followup at the shelter. Time for discharge day management greater than 30 minutes. MAN Yolette UGARTE MD DR: SB/carmen JOB#: [id number] / [id number]
--- NOTE | 2018-05-18 23:33 | PN ---
DATE: 05/17/2018 This is a late entry 05/17/2018, covers the elements not covered in my initial note. SUBJECTIVE: I met with the patient in the evening. The patient slept 8-3/4 hours the previous evening. The patient remains isolative, spends much time in her room. Talks to herself, but on close questioning, denies she has been hallucinating. REVIEW OF SYSTEMS: No CV, , pulmonary, eye system symptoms on review. Ambulates with a walker. MENTAL STATUS EXAM: Reasonably oriented. Speech is coherent, has some latency. Abstraction fair, computation impaired, language function intact, attention span short. Mood and affect somewhat withdrawn, but showing improvement. LABORATORY DATA: Reviewed. IMPRESSION: Bipolar 1 disorder, mixed; anxiety disorder, unspecified. PLAN: Continue current psychotropics. She has been started on melatonin 3 mg by mouth at bedtime. We will adjust further as clinically indicated. AG UGARTE MD DR: SB/carmen JOB#: [id number] / [id number]
--- NOTE | 2018-05-19 19:07 | PDOC ---
Exam Note: Alex Note: Late entry for date of service for May 18, 2018.Please also refer to the separate dictated note~for this date of service dictated separately.~Patient seen individually. Discussed the patient with Nursing staff reviewed the chart.~ Reviewed interim history and current functioning. Reviewed vital signs,~Labs/ Radiology~and current medications noted below. Continue current treatment with the changes noted in the dictated addendum note Assessment: Vital Signs: VS - Last 72 Hours, by Label Date Time Temp Pulse Resp B/P (MAP) Pulse Ox O2 Delivery O2 Flow Rate FiO2 05/18/18 06:03 97.6 57 18 118/68 (85) 98 05/17/18 15:42 97.8 68 18 110/66 (81) 96 Room Air 05/17/18 06:03 97.2 52 18 118/62 (80) 96 Vital Signs Date Time Temp Pulse Resp B/P (MAP) Pulse Ox O2 Delivery O2 Flow Rate FiO2 05/18/18 06:03 97.6 57 18 118/68 (85) 98 05/17/18 15:42 Room Air I&O Intake and Output 05/19/18 07:00 Intake Total 600 ml Balance 600 ml Intake Oral 600 ml Current Medications: Meds: Current Medications Trimethoprim/ Sulfamethoxazole (Bactrim Ds) 1 tab 1X ONCE PO Last administered on 05/12/18at 09:56; Start 05/12/18 at 10:10; Stop 05/12/18 at 10 :11; Status DC Acetaminophen (Tylenol) 650 mg PRN Q6HRS PRN PO PAIN / TEMP Last administered on 05/15/18at 08:40; Start 05/12/18 at 12:00; Stop 05/18/18 at 12:34; Status DC Multi-Ingredient Ointment (Analgesic Jamison) 1 mariela PRN QID PRN TP MUSCLE PAIN; Start 05/12/18 at 12:00; Stop 05/18/18 at 12:34; Status DC Al Hydroxide/Mg Hydroxide (Mylanta Plus Xs) 15 ml PRN AFTMEALHC PRN PO DYSPEPSIA; Start 05/12/18 at 12:00; Stop 05/18/18 at 12:34; Status DC Magnesium Hydroxide (Milk Of Magnesia) 2,400 mg PRN QHS PRN PO CONSTIPATION Last administered on 05/18/18at 08:17; Start 05/12/18 at 12:00; Stop 05/18/18 at 12:35; Status DC Diclofenac Sodium (Voltaren) 1 mariela PRN QID PRN TP PAIN; Start 05/12/18 at 12: 30; Stop 05/12/18 at 13:22; Status DC Ibuprofen (Motrin) 600 mg PRN Q6HRS PRN PO INFLAMMATION; Start 05/12/18 at 12: 45; Stop 05/18/18 at 12:35; Status DC Ascorbic Acid (Vitamin C) 500 mg DAILY PO Last administered on 05/18/18at 08:17 ; Start 05/13/18 at 09:00; Stop 05/18/18 at 12:35; Status DC Insulin Glargine (Lantus) 20 units QHS SQ ; Start 05/12/18 at 21:00; Stop at 21:00; Status DC Metformin HCl (Glucophage) 1,000 mg BIDWMEALS PO ; Start 05/12/18 at 17:00; Stop 05/12/18 at 17:00; Status DC Metformin HCl (Glucophage) 1,000 mg DAILYWBKFT PO Last administered on at 08:17; Start 05/13/18 at 08:00; Stop 05/18/18 at 12:35; Status DC Zolpidem Tartrate (Ambien) 5 mg PRN QHS PRN PO INSOMNIA; Start 05/12/18 at 13: 45; Stop 05/12/18 at 13:46; Status DC Benzocaine (Ora-Jel Maximum) 1 mariela PRN Q6HRS PRN TP ORAL PAIN; Start 05/12/18 at 13:45; Stop 05/18/18 at 12:35; Status DC Glucose (Insta-Glucose) 15 gm PRN Q15MIN PRN PO LOW BLOOD SUGAR; Start at 13:45; Stop 05/18/18 at 12:35; Status DC Latanoprost (Xalatan) 1 drop QHS OU Last administered on 05/14/18at 20:28; Start 05/12/18 at 21:00; Stop 05/15/18 at 19:39; Status DC Lurasidone HCl (Latuda) 80 mg DAILYWSUP PO Last administered on 05/17/18at 16:59 ; Start 05/12/18 at 17:00; Stop 05/18/18 at 12:35; Status DC Insulin Glargine (Lantus) 20 units DAILY SQ Last administered on 05/18/18at 08: 18; Start 05/13/18 at 09:00; Stop 05/18/18 at 12:35; Status DC Zolpidem Tartrate (Ambien) 5 mg QHS PO Last administered on 05/17/18at 19:29; Start 05/12/18 at 21:00; Stop 05/18/18 at 12:35; Status DC Trimethoprim/ Sulfamethoxazole (Bactrim Ds) 1 tab BID PO Last administered on 05/16/18at 08:16; Start 05/13/18 at 21:00; Stop 05/16/18 at 13:30; Status DC Lactobacillus Rhamnosus (Culturelle) 1 cap BID PO Last administered on at 08:17; Start 05/13/18 at 21:00; Stop 05/18/18 at 12:35; Status DC Sertraline HCl (Zoloft) 25 mg DAILY PO Last administered on 05/18/18at 08:17; Start 05/14/18 at 09:00; Stop 05/18/18 at 12:35; Status DC Latanoprost (Xalatan) 1 drop QHS OU Last administered on 05/17/18at 19:30; Start 05/15/18 at 19:39; Stop 05/18/18 at 12:35; Status DC Melatonin 3 mg HS PO Last administered on 05/17/18at 21:28; Start 05/17/18 at 21 :00; Stop 05/18/18 at 12:35; Status DC Active Scripts Active Reported Melatonin 3 Mg Tablet 3 Mg PO HS Zoloft (Sertraline Hcl) 25 Mg Tablet 25 Mg PO DAILY Glucose (Dextrose) 15 Gm/59 Ml Liquid 15 Gm PO PRN QID Anbesol (Benzocaine) 9 Gm Gel..gram. 9 Gm MM PRN Q6HRS PRN Latanoprost 2.5 Ml Drops 1 Drop EACHEYE QHS Ibuprofen 400 Mg Tablet 600 Mg PO PRN Q6HRS PRN Metformin Hcl 1,000 Mg Tablet 1,000 Mg PO DAILY Vitamin C (Ascorbic Acid) 500 Mg Capsule 500 Mg PO DAILY Levemir (Insulin Detemir) 100 Unit/1 Ml Vial 20 Unit SQ DAILY Latuda (Lurasidone Hcl) 80 Mg Tablet 80 Mg PO DAILYBFRSUP Ambien (Zolpidem Tartrate) 5 Mg Tablet 5 Mg PO HS I have reviewed the current psychotropics carefully including drug interactions. Risk benefit ratio favors no change other than as noted in my dictated progress note. Diagnosis: Problems: (1) Anxiety disorder (2) Bipolar affective, mixed, sev w/ psych (3) Impulse control disorder AG UGARTE MD May 19, 2018 19:07
== END 2018-05-18 12:34 | DRG 885 ==
LOC: ER 08:43 → GEROPSY 10:00
PROVIDERS: ADMIT Psychiatry & Neurology Psychiatry; ATTEND Psychiatry & Neurology Psychiatry
DX: F31.60 Bipolar disorder, current episode mixed, unspecified (principal); N39.0 Urinary tract infection, site not specified; E11.42 Type 2 diabetes mellitus with diabetic polyneuropathy; E11.51 Type 2 diabetes mellitus with diabetic peripheral angiopathy without gangrene; F41.9 Anxiety disorder, unspecified; F63.9 Impulse disorder, unspecified; G89.29 Other chronic pain; H40.9 Unspecified glaucoma; M54.9 Dorsalgia, unspecified; I10 Essential (primary) hypertension; M15.9 Polyosteoarthritis, unspecified; Z91.14 Patient's other noncompliance with medication regimen; Z88.8 Allergy status to other drugs, medicaments and biological substances; Z79.84 Long term (current) use of oral hypoglycemic drugs
CPT/HCPCS: 36415; 80053; 80061; 81001; 82306; 82607; 82947; 83036; 83540; 83550; 83735; 84436; 84443; 84480; 85025; 86592; 87086; 93005; J1815; 99285-25

== ENCOUNTER 2021-07-15 10:02 | Emergency (ER) | payer MEDICARE, MEDICAID ==
[~2021-07-15] VITALS: Ht 162.6 cm; Wt 51.5 kg
[~2021-07-15 10:02] MED LIST: ASCO500C9 PO; BENZ9GEL MM; DEXT15LI PO; DICL100G18 TP; IBUP400T18 PO; INSU100V13 SQ; LACT1CAP21 PO; LATA2.5D3 EACHEYE; LURA80TA PO; MELA3TAB4 PO; METF10007 PO; SERT25TA PO; TEMA15CA PO; ZOLP5TAB PO
[2021-07-15 10:12] VITALS: BP 132/59
--- NOTE | 2021-07-15 10:20 | PHYS DOC ---
Past History Past Medical History: Alcoholism, Arthritis, Diabetes, Hypertension, Other Past Surgical History: Other Alcohol Use: Occasionally Drug Use: None General Adult EDM: Chief Complaint: OTHER COMPLAINTS HPI: HPI: Patient is a 66-year-old female coming in via EMS from [facility]. Patient states she wanted medical evaluation at this facility for "curved teeth". Patient states that she had to drink too much of a vanilla protein drink and it curved her teeth. No other complaints. Patient has a history of psychiatric issues and was requested to come here because she has stayed at [facility] in the past. Patient was recently diagnosed with a UTI and prescribed amoxicillin, per penitentiary report she is refusing take her medicines today. They state that she is in her normal state of dementia where she has been refusing to open her eyes but then goes back to opening them and acting at her baseline. They state that she is in her normal mental state and they only called EMS because she was requesting medical evaluation. Patient says that her only medical complaint is her curved teeth. Review of Systems: Review of Systems: All other systems within normal limits except for as noted in the HPI Allergies: Allergies: Allergies Coded Allergies Type Severity Reaction Last Updated Verified bimatoprost Allergy Intermediate 05/12/18 Yes clotrimazole Allergy Intermediate 05/12/18 Yes pioglitazone Allergy Intermediate 05/12/18 Yes glyburide Adverse Reaction Intermediate 05/12/18 Yes Physical Exam: PE: Constitutional: Well developed, well nourished, no acute distress, non-toxic appearance. [] HENT: Normocephalic, atraumatic, bilateral external ears normal, nose normal. Multiple dental caries but no gross abnormality, no swelling of gingiva or evidence of infection. [] Eyes: PERRLA, conjunctiva normal, no discharge. [] Neck: No rigidity, supple, no stridor. [] Cardiovascular: Regular rate and rhythm, brisk cap refill [] Lungs & Thorax: Non labored symmetric respirations, no tachypnea or respiratory distress [] Abdomen: Soft, nondistended. Skin: Warm, dry, no erythema, no rash. [] Back: Unremarkable Extremities: No deformities, range of motion grossly intact, no lower extremity edema [] Neurologic: Alert and oriented X 3, no focal deficits noted. [] Psychologic: Affect normal, judgement normal, mood normal. [] EKG: EKG: [] Radiology/Procedures: Radiology/Procedures: [] Heart Score: C/O Chest Pain: No Risk Factors: Risk Factors: DM, Current or recent (<one month) smoker, HTN, HLP, family history of CAD, obesity. Risk Scores: Score 0 - 3: 2.5% MACE over next 6 weeks - Discharge Home Score 4 - 6: 20.3% MACE over next 6 weeks - Admit for Clinical Observation Score 7 - 10: 72.7% MACE over next 6 weeks - Early Invasive Strategies Course & Med Decision Making: Course & Med Decision Making Recommend patient that she follows up with a dentist for her dental concerns. Dragon Disclaimer: Dragon Disclaimer: This electronic medical record was generated, in whole or in part, using a voice recognition dictation system. Departure Departure: Impression: Primary Impression: Dental caries Disposition: HOME / SELF CARE / HOMELESS Condition: STABLE Referrals: DEANA BURGOS MD (PCP) Patient Instructions: Dental Abscess ARMIN ALCANTAR MD Jul 15, 2021 10:20
== END 2021-07-15 10:49 | disposition home or self-care (01) ==
LOC: ER 10:02
DX: K02.9 Dental caries, unspecified (principal); M19.90 Unspecified osteoarthritis, unspecified site; E11.9 Type 2 diabetes mellitus without complications; I10 Essential (primary) hypertension; F10.20 Alcohol dependence, uncomplicated; Z88.8 Allergy status to other drugs, medicaments and biological substances; Y90.9 Presence of alcohol in blood, level not specified
CPT/HCPCS: 99283